=== PATIENT | female | born 1990 | race African-American/Black ===

== ENCOUNTER 2020-04-05 21:37 | Emergency (ER) | payer OTHER, SELFPAY ==
[2020-04-05 21:41] VITALS: BP 101/57; PULSE 86; RESP 16; TEMP 36.3; O2SAT 99
--- NOTE | 2020-04-05 23:40 | ED.BACK ---
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 and when she straightened up felt an acute and sudden strain in her back accompanied by severe pain There are no neurologic symptoms She does not have flank pain, dysuria, or hematuria She does not have risk factors that would put her in a high risk category such as cancer or drug use She does report being about 8 weeks , she is not having any pelvic pain or cramping or vaginal bleeding, and she does understand that this limits somewhat which medications and studies would be prudent MD elicited complaint: back pain Related Data Home Medications Medication Instructions Recorded Confirmed No Home Medications 04/05/20 04/05/20 Allergies Allergy/AdvReac Type Severity Reaction Status Date / Time No Known Allergies Allergy Verified 04/05/20 22:44 Review of Systems Review of Systems: All systems reviewed & are unremarkable except as noted in HPI and below Constitutional: Constitutional: Denies fever(s) and Denies headache(s) ENT: Denies headache(s) Cardiovascular: Cardiovascular: Denies leg edema, Denies palpitations and Denies dyspnea Respiratory: Respiratory: Denies cough Gastrointestinal: Gastrointestinal: Denies abdominal pain and Denies vomiting Genitourinary: Genitourinary: Denies abnormal vaginal bleeding, Denies hematuria, Denies urinary frequency, Denies dysuria and Denies flank pain Musculoskeletal: Musculoskeletal: Reports back pain, Denies deformity, Denies arthralgias, Denies joint swelling, Reports muscle cramps, Denies muscle weakness and Denies numbness Integumentary/Breasts: Skin/Breast: Denies rash and Denies wounds Neurologic: Denies headache(s), Denies focal weakness, Denies numbness and Denies weakness Psychiatric: Psychiatric: Reports no additional psychiatric complaints Endocrine: Endocrine: Denies palpitations Exam Const: General: well developed, alert and awake Nutritional Appearance: well nourished Orientation/consciousness: patient oriented x3 (alert) HENMT: Head: normocephalic and atraumatic General nose exam: No nasal discharge present Face and sinus: face symmetric Eyes: Conjunctivae: conjunctivae normal Sclera: sclerae normal EOM: EOMs intact bilaterally Neck: Neck: supple and no JVD Chest: Chest palpation & inspection: deferred Resp: Effort & Inspection: normal respiratory effort and not labored Auscultation: other (BS =) Cardio: Heart sounds: no gallops GI: Inspection: normal to inspection GI Palp: Yes Soft to palpation and No Tenderness to palpation present (GI) Back/Spine/Pelvis: Thoracic/Lumbar Spine: thoracic and lumbar spine normal to inspection Other: There is somewhat diffuse tenderness to the mid to the low back, seems to be mainly localized in the upper lumbar/lower thoracic paraspinous area on the right, ability to do any kind of range of motion testing is prevented by her pain, she has a negative straight leg raise bilaterally to nearly 90 degrees, good range of motion of the hips, normal foot dorsi and plantar flexion Skin: General skin exam: normal color and no rashes or lesions noted Neuro: General: patient oriented x3 (alert), moves all extremities and no focal motor deficits Cranial nerves: Yes facial symmetry Speech: normal speech Extrem: General: normal to inspection, full ROM and no pedal edema Psych: Affect: normal affect Course Vital Signs Vital signs: Vital Signs Temperature 36.3 C L 04/05/20 21:41 Pulse Rate 86 04/05/20 21:41 Respiratory Rate 16 04/05/20 21:41 Blood Pressure 101/57 L 04/05/20 21:41 Pulse Oximetry 99 04/05/20 21:41
[2020-04-05] MEDS: oxyCODONE/ACETAMINOPHEN (*CRX) 5-325 MG TABLET 1 TABLET PO (23:52)
[2020-04-06 00:13] VITALS: BP 110/68; PULSE 80; RESP 16; TEMP 36.9; O2SAT 100
== END 2020-04-06 00:15 | disposition home or self-care (01) ==
PROVIDERS: Emergency Provider Emergency Medicine
DX: O9A.211 Injury, poisoning and certain other consequences of external causes complicating pregnancy, first trimester (principal); S39.012A Strain of muscle, fascia and tendon of lower back, initial encounter; X50.0XXA Overexertion from strenuous movement or load, initial encounter; Z3A.08 8 weeks gestation of pregnancy
CPT/HCPCS: 99283; A9270

== ENCOUNTER 2020-04-10 14:59 | Emergency (ER) | payer MEDICAID, SELFPAY ==
[2020-04-10 15:13] VITALS: BP 109/63; PULSE 97; RESP 18; TEMP 36.4; O2SAT 100
[2020-04-10 15:29] LABS: Basophils Percent Auto 0.6 % (0.2-1.2); Eosinophils Percent Auto 0.4 % (0-4.4); Hematocrit 38.1 % (37.0-47.0); Hemoglobin 12.2 g/dL (12.0-15.0); Immature Granulocyte Absolute 0.03 K/mm3 (0.00-0.031); Immature Granulocyte Percent A 0.4 % (0-0.5); Lymphocytes Absolute Auto 1.84 K/mm3 (0.9-3.2); Lymphocytes Percent Auto 26.1 % (18.3-44.2); Mean Corpuscular Hemoglobin 27.7 pg (26-34); Mean Corpuscular Volume 86.4 fl (80-100); Mean Platelet Volume 10.7 fl (7.4-10.4); Monocytes Absolute Auto 0.5 K/mm3 (0.1-0.6); Monocytes Percent Auto 7.4 % (2.6-8.5); Neutrophils Absolute Auto 4.6 K/mm3 (1.3-6.7); Neutrophils Percent Auto 65.1 % (45.5-73.1); Platelet Count Result 245 k/mm3 (150-375); Red Blood Count 4.41 M/mm3 (4.2-5.4); Red Cell Distribution Width 13.2 % (11.5-14.5)
[2020-04-10 15:40] LABS: Alanine Aminotransferase 14 U/L (4-35); Albumin Level 3.8 g/dL (3.5-5.1); Alkaline Phosphatase 34 U/L (38-126); Anion Gap 6 mmol/L (8-16); Aspartate Amino Transferase 25 U/L (14-36); Bilirubin,Total 0.4 mg/dL (0.2-1.3); Blood Urea Nitrogen 13 mg/dL (7-17); Calcium 8.8 mg/dL (8.4-10.2); Carbon Dioxide 22 mmol/L (22-30); Chloride 104 mmol/L (98-107); Estimated CRCL calculation 104 ml/min; Estimated Glomerular Filt Rate > 60; Glucose 77 mg/dL (65-105); Lipase 46 U/L (23-300); Sodium 132 mmol/L (137-145)
[2020-04-10 15:48] LABS: Add Urine Microscopic? YES; Appearance Urine Clear (Clear); Bacteria Urine Trace /hpf; Bilirubin Urine Negative (Negative); Blood Urine Negative (Negative); Color Urine Yellow (Yellow); Glucose Urine UA Negative (Negative); Ketones Urine Negative (Negative); Leukocyte Esterase Ur Negative LEU/UL (Negative); Mucus Urine Rare /lpf; Nitrate Urine Negative (Negative); Protein Urine 1+ mg/dL (Negative); RBC Urine 0-2 /hpf (0-2); Squamous Epithelial Cell Urine Many /hpf (Few); WBC Urine 0-3 /hpf
[2020-04-10 15:49] LABS: Specific Grav Ur 1.031 (1.001-1.035)
[2020-04-10] MEDS: LIDOCAINE 5% PATCH 1 PATCH TRANSDERM (16:56)
--- NOTE | 2020-04-10 17:25 | ED.BACK ---
HPI - Back Pain/Injury General Chief Complaint: Back Pain/Injury Stated Complaint: back pain Time Seen by Provider: 04/10/20 15:28 Source: patient Mode of arrival: ambulatory Limitations: no limitations History of Present Illness HPI Narrative: 30-year-old female presents to the emergency department [facility] with complaints of low back pain. Patient states it primarily on her right lower back. She states that she did this at work about a week ago. Patient states that she is actually already been seen here, evaluated and discharged. Patient's pain was getting worse. She was using ice packs with little to no relief. She denies any radiation of her pain at this time. Related Data Allergies Allergy/AdvReac Type Severity Reaction Status Date / Time No Known Allergies Allergy Verified 04/10/20 15:17 Review of Systems Review of Systems: Narrative: CONSTITUTIONAL: Denies fever, chills, or sweats. EYES: Denies visual changes, redness, or discharge. ENT: Denies rhinorrhea, congestion, sore throat, or otalgia. CARDIOVASCULAR: Denies chest pain, palpitations, or edema. RESPIRATORY: Denies cough or dyspnea. GASTROINTESTINAL: Denies abdominal pain, nausea, vomiting, or diarrhea. GENITOURINARY: Denies dysuria or hematuria. SKIN: Denies rash or itching. MUSCULOSKELETAL: Denies joint pain, or myalgia. Endorses low back pain NEUROLOGIC: Denies headache, numbness, dizziness, or weakness. PSYCHIATRIC: Denies anxiety or depression. [facility] Social History Social History Gender identity (if verbalized by the patient): Female Exam Narrative: Exam Narrative: GENERAL: Well-appearing, well-nourished, and in no acute distress. HEAD: Normocephalic, atraumatic. EYES: PERRLA and EOMI. ENT: Nares clear, no rhinorrhea or epistaxis. Mucous membranes moist. NECK: Supple. No adenopathy or masses. No carotid bruits or JVD CHEST: Clear to auscultation. No respiratory distress. No wheezes rales or rhonchi HEART: Regular rate and rhythm. No murmur heard. Normal peripheral pulses. ABDOMEN: Soft, nontender, nondistended, normal active bowel sounds. EXTREMITIES: Normal range of motion. No edema. Tenderness to palpation at the right lower back. SKIN: Warm, dry, no rash. NEURO: No focal deficits. Alert and oriented x3. PSYCH: Normal mood and affect. Course Reevaluation(s) Reevaluation #1: Bedside ultrasound performed by myself, to the best of my abilities. Intrauterine gestation seen, patient with heart rate. Unable to calculate heart rate on my machine. Heart rate appears to be appropriate. movement seen. Reevaluation #2: Patient has had lidocaine patch applied, she is starting to feel better. We will plan for discharge at this time. Time: 17:27 Vital Signs Vital signs: Vital Signs Temperature 36.4 C L 04/10/20 15:13 Pulse Rate 97 04/10/20 15:13 Respiratory Rate 18 04/10/20 15:13 Blood Pressure 109/63 04/10/20 15:13 Pulse Oximetry 100 04/10/20 15:13 Temperature 36.4 C L 04/10/20 15:13 Pulse Rate 97 04/10/20 15:13 Respiratory Rate 18 04/10/20 15:13 Blood Pressure 109/63 04/10/20 15:13 Pulse Oximetry 100 04/10/20 15:13 MDM - Back Pain/Injury MDM Narrative Medical decision making narrative: In brief this 30-year-old female who states she is approximately 8 weeks presents to the emergency department [facility] with complaints of right sided lower back pain. Pain appears to be musculoskeletal in nature. It is easily reproducible. Patient motions to her upper buttock, low back area where the pain starts. Seems to radiate up her back. Palpation does reproduce this. Did consider possible ectopic as the patient states that she has not been thoroughly evaluated for this yet. Bedside ultrasound did demonstrate intrauterine gestation with a hCG of over 80,000. Patient treated symptomatically with lidocaine patch. She will be dis
== END 2020-04-10 17:46 | disposition home or self-care (01) ==
PROVIDERS: Emergency Medicine; Emergency Provider Emergency Medicine
DX: O9A.211 Injury, poisoning and certain other consequences of external causes complicating pregnancy, first trimester (principal); S39.012A Strain of muscle, fascia and tendon of lower back, initial encounter; Z3A.08 8 weeks gestation of pregnancy; X58.XXXA Exposure to other specified factors, initial encounter
CPT/HCPCS: 36415; 80053; 81001; 81025; 83690; 84702; 85025; 99283; A9270